=== PATIENT | female | born 1995 | race Caucasian/White ===

== ENCOUNTER → 2018-12-23 | Outpatient (CLI) | payer OTHER ==
--- NOTE | 2018-12-23 20:34 | XCELERA REPORT ---
[address] [address] Transthoracic Echocardiogram Report Name: CK DUBON Age: 23 yrs Gender: Female : 1995 Patient Status: Outpatient Patient Location: [facility] Study Date: 12/23/2018 02:09 PM Height: 67 in Weight: 140 lb BSA: 1.7 m2 Procedure: A two-dimensional transthoracic echocardiogram with color flow and Doppler was performed. Study Quality: Good. Reason For Study: CHEST PAIN History: CHEST PAIN. Ordering Physician: TRACI HALE Performed By: Vijay Cota Interpretation Summary The left ventricle is normal in size. There is normal left ventricular wall thickness. LV EF is > than 60% The left ventricular ejection fraction is within normal limits. Doppler measurements suggest normal left ventricular diastolic function The left ventricular wall motion is normal. There is no thrombus. There is no ventricular septal defect visualized. The right ventricle is normal in size and function. The right atrium is normal. The left atrial size is normal. The interatrial septum is intact with no evidence for an atrial septal defect. There is no Doppler evidence for an interatrial shunt There is no evidence of mitral valve prolapse. There is no vegetation seen on the mitral valve. There is no mitral valve stenosis. There is a trace amount of mitral regurgitation There is no aortic valvular vegetation. There is no aortic valve stenosis There is no LVOT obstruction. No aortic regurgitation is present. There is no tricuspid stenosis. There is a trace to mild amount of tricuspid regurgitation No significant pulmonary hypertension.RVSP is 26 to 31 mm of Hg , with RA mean of 5 to 10. There is no pulmonic valvular stenosis. There is a trace amount of pulmonic regurgitation The aortic root is normal size. The inferior vena cava appeared normal and decreased > 50% with respiration (RAP 5-10 mmHg) MMode/2D Measurements & Calculations RVDd: 2.6 cm LVIDd: 5.2 cm FS: 32.4 % Ao root diam: 2.5 cm IVSd: 0.70 cm LVIDs: 3.5 cm EDV(Teich): Ao root area: LVPWd: 0.67 cm 130.9 ml 5.0 cm2 ESV(Teich): 52.1 mlLA dimension: 3.0 cm EF(Teich): 60.2 % LVLd ap4: 7.3 cm SV(MOD-sp4): EDV(MOD-sp4): 51.0 ml 85.0 ml LVLs ap4: 5.9 cm ESV(MOD-sp4): 34.0 ml EF(MOD-sp4): 60.0 % Doppler Measurements & Calculations MV E max mauricio: MV P1/2t max mauricio: Ao V2 max: LV V1 max P.2 cm/sec 95.3 cm/sec 131.0 cm/sec 3.3 mmHg MV A max mauricio: MV P1/2t: 100.2 msec Ao max PG: LV V1 max: 43.2 cm/sec MVA(P1/2t): 2.2 cm2 6.9 mmHg 91.4 cm/sec MV E/A: 2.1 MV dec slope: 278.4 cm/sec2 MV dec time: 0.22 sec PA V2 max: PI end-d mauricio: TR max mauricio: MV P1/2t-pr_phl: 90.8 cm/sec 76.0 cm/sec 231.3 cm/sec 100.2 msec PA max PG: TR max P.3 mmHg 21.4 mmHg Left Ventricle The left ventricle is normal in size. There is normal left ventricular wall thickness. LV EF is > than 60%. The left ventricular ejection fraction is within normal limits. Doppler measurements suggest normal left ventricular diastolic function. The left ventricular wall motion is normal. There is no thrombus. There is no ventricular septal defect visualized. Right Ventricle The right ventricle is normal in size and function. Atria The right atrium is normal. The left atrial size is normal. The interatrial septum is intact with no evidence for an atrial septal defect. There is no Doppler evidence for an interatrial shunt. Mitral Valve There is no evidence of mitral valve prolapse. There is no vegetation seen on the mitral valve. There is no mitral valve stenosis. There is a trace amount of mitral regurgitation. Aortic Valve There is no aortic valvular vegetation. There is no aortic valve stenosis. There is no LVOT obstruction. No aortic regurgitation is present. Tricuspid Valve There is no tricuspid stenosis. There is a trace to mild amount of tricuspid regurgitation. No significant pulmonary hypertension.RVSP is 26 to 31 mm of Hg , with RA mean of 5 to 10. Pulmonic Valve There is no pulmonic valvular stenosis. There is a trace amount of pulmonic regurgitation. Great Vessels The aortic root is normal size. The inferior vena cava appeared normal and decreased > 50% with respiration (RAP 5-10 mmHg). Effusions There is no pericardial effusion. : TRACI HALE > Elizabeth Smith
== END ==
LOC: SP 13:34
PROVIDERS: ATTEND Family Medicine
DX: R07.89 Other chest pain (principal)
CPT/HCPCS: 93306

== ENCOUNTER → 2019-04-08 | Outpatient (CLI) | payer OTHER | LOC: LAB 11:47 | PROVIDERS: ATTEND Family Medicine | DX: Z32.01 Encounter for pregnancy test, result positive (principal) | CPT/HCPCS: 81025 ==

== ENCOUNTER 2019-11-27 10:02 | Inpatient (IN) | payer OTHER ==
[2019-11-27 10:48] LABS: APPEARANCE,URINE CLEAR; BILIRUBIN,URINE NEGATIVE (NEGATIVE); COLOR,URINE YELLOW; GLUCOSE, URINE NEGATIVE (NEGATIVE); KETONES,URINE NEGATIVE (NEGATIVE); LEUKOCYTE ESTERASE,URINE NEGATIVE (NEGATIVE); NITRITE,URINE NEGATIVE (NEGATIVE); PROTEIN,URINE NEGATIVE (NEGATIVE); URINE SPECIFIC GRAVITY 1.008; UROBILINOGEN,URINE NEGATIVE mg/dL (<2.0)
[2019-11-27] MEDS ORDERED: OXYTOCIN 10 UNIT/ML VIAL ONE (11:09)
[2019-11-27] MEDS ORDERED: MISOPROSTOL 0.2 MG TABLET ONE (11:09)
[2019-11-27] MEDS ORDERED: OXYTOCIN/0.9 % SODIUM CHLORIDE 30 UNIT/500 ML RTUINJ ONE (11:10)
[2019-11-27] MEDS ORDERED: LIDOCAINE 1% INJ-PF (10 MG/ML) 30 ML SDV ONE (11:10)
[2019-11-27 11:13] LABS: URINE AMPHETAMINES SCREEN NEGATIVE; URINE BARBITURATES SCREEN NEGATIVE; URINE BENZODIAZEPINES SCREEN NEGATIVE; URINE COCAINE SCREEN NEGATIVE; URINE MARIJUANA (THC) SCREEN NEGATIVE; URINE METHADONE SCREEN NEGATIVE; URINE PHENCYCLIDINE SCREEN NEGATIVE
[2019-11-27 11:37] LABS: ABSOLUTE LYMPHOCYTES (AUTO) 1.5 10^3/uL (0.5-4.7); ABSOLUTE MONOCYTES (AUTO) 0.5 10^3/uL (0.1-1.4); BASOPHILS % (AUTO) 0.3 % (0-2); EOSINOPHILS % (AUTO) 0.6 % (0-6); HEMOGLOBIN 12.4 g/dL (12.0-15.5); LYMPHOCYTES % (AUTO) 20.9 % (13-45); MEAN CORPUSCULAR HEMOGLOBIN 30.7 pg (27.0-33.4); MEAN CORPUSCULAR HGB CONC 35.3 g/dL (32.0-36.0); MEAN CORPUSCULAR VOLUME 87 fl (80-97); MONOCYTES % (AUTO) 6.9 % (3-13); PLATELET COUNT 220 10^3/uL (150-450); RED BLOOD COUNT 4.03 10^6/uL (3.72-5.28); RED CELL DISTRIBUTION WIDTH 12.7 % (11.5-14.0); SEGMENTED NEUTROPHILS % (AUTO) 71.3 % (42-78); TOTAL CELLS COUNTED % (AUTO) 100 %; WHITE BLOOD COUNT 7.1 10^3/uL (4.0-10.5)
[2019-11-27] MEDS: RINGERS SOLUTION,LACTATED 1,000 ML IV PRN (11:47)
--- NOTE | 2019-11-27 13:08 | Warning Signs in Babies ---
VOD Warning Signs Datetime Report Generated by [facility]: 11/27/2019 13:08 VOD#608 -Warning Signs in Babies: Viewed with Parent(s)/Family (11/27/2019 10:22:Edna Kenny RN)
--- NOTE | 2019-11-27 19:21 | Admission Physical ---
Datetime Report Generated by CPN: 11/27/2019 19:21 CURRENT ADMISSION Chief Complaint: Suspected Ruptured Membranes Indication for Induction: PROM Admit Impression : Term, Intrauterine ; Ruptured Membranes Admit Plan: Admit to Unit; Initiate Labor Induction Protocol ALLERGIES Medication Allergies: No Medication Allergies: No Known Allergies (11/27/2019) Latex: No Latex Allergies OBSTETRICAL HISTORY EDC: 12/13/2019 00:00 : 1 Para: 0 Term: 0 : 0 SAB: 0 IAB: 0 Ectopic: 0 Livin Cesareans: 0 VBACs: 0 Multiple Births: 0 Gestational Diabetes: No Rh Sensitization: No Incompetent Cervix: No MAYTE: No Infertility: No ART Treatment: No Uterine Anomaly: No IUGR: No Hx Previous C/S: No Macrosomia: No Hx Loss/Stillborn: No PIH: No Hx : No Placenta Previa/Abruption: No Depression/PP Depression: No PTL/PROM: No Post Hemorrhage: No Current Procedures: Ultrasound Obstetrical History Comments: G1- current SEE RECORDS Alcohol: No Marijuana : No Cocaine: No Other Illicit Drugs: No Cigarettes: Never Smoker. [id number] MEDICAL HISTORY Diabetes: No Blood Transfusion: No Pulmonary Disease (Asthma, TB): No Breast Disease: No Hypertension: No Neurophysiologist Surgery: No Heart Disease: No Hosp/Surgery: Yes Autoimmune Disorder: No Anesthetic Complications: No Kidney Disease: No Abnormal Pap Smear: No Neuro/Epilepsy: No Psychiatric Disorders: No Other Medical Diseases: No Hepatitis/Liver Disease: No Significant Family History: No Varicosities/Phlebitis: No Trauma/Violence : No Thyroid Dysfunction: No Medical History Comments: tonsilectomy- age 3, wisdom teeth removal 2014 INFECTIOUS HISTORY Gonorrhea: No Genital Herpes: Yes Chlamydia: No Tuberculosis: No Syphilis: No Hepatitis: No HIV/AIDS Exposure: No Rash or Viral Illness: No HPV: No Infectious History Comments: pt and partner with HSV; no outbreak since initial dx 3 years ago; currently on Valtrex 1000mg daily for prophylaxis, started 11/26/19; no evidence of current lesions on exam PHYSICAL EXAM General: Normal HEENT: Normal Neurologic: Normal Thyroid: Normal Heart: Normal Lungs: Normal Breast: Deferred Back: Normal Abdomen: Normal Genitourinary Exam: Normal Extremities: Normal DTRs: Normal Pelvic Type: Adequate Vital Signs: Reviewed VAGINAL EXAM Dilatation: 1 Effacement: 70 Station: -2 MEMBRANES Pooling: Positive Membranes: Ruptured FETUS A EGA: 37.5 Monitoring: External US FHR- Baseline: 120 Decelerations: None FHR Category: Category I Presentation: Vertex Admit Comment: Est weight 7-8 lbs PLANS FOR LABOR AND DELIVERY Labor and Delivery: None Pain Management: None Other Pain Management Plans: IV pain meds preferred over epidural if indicated Feeding Preference: Breast Benefit of Breast Feed Discussed: Yes Circumcision: Yes INFORMED CONSENT Signature: with User ID: [email or web address]
[2019-11-27] MEDS ORDERED: AMPICILLIN SOD INJ 2 GM VIAL ONE (20:39)
[2019-11-28] MEDS: RINGERS SOLUTION,LACTATED 1,000 ML IV PRN (00:29)
[2019-11-28] MEDS ORDERED: AMPICILLIN SOD INJ 2 GM VIAL ONE (02:55)
[2019-11-28] MEDS: AMPICILLIN SOD INJ 2 GM VIAL IV SCH ×3 (03:04→10:20)
[2019-11-28] MEDS ORDERED: PROMETHAZINE HCL INJ 25 MG/1 ML VIAL ONE (04:53)
[2019-11-28] MEDS ORDERED: PROMETHAZINE HCL INJ 25 MG/1 ML VIAL IV ONE (04:54)
[2019-11-28] MEDS ORDERED: NALBUPHINE HCL INJ 10 MG/1 ML AMPULE ONE (04:54)
[2019-11-28] MEDS ORDERED: NALBUPHINE HCL INJ 10 MG/1 ML AMPULE INJ ONE (04:54)
[2019-11-28] MEDS ORDERED: BENZOCAINE/MENTHOL AEROSOL SPRAY 56 ML TOP PRN (07:33)
[2019-11-28] MEDS ORDERED: ACETAMINOPHEN 650 MG SUPP.RECT PR PRN (07:33)
[2019-11-28] MEDS ORDERED: ZOLPIDEM TARTRATE 5 MG TABLET PO PRN (07:33)
[2019-11-28] MEDS ORDERED: OXYTOCIN/0.9 % SODIUM CHLORIDE 30 UNIT/500 ML RTUINJ IV PRN (07:33)
[2019-11-28] MEDS ORDERED: MAGNESIUM HYDROXIDE SUSP 30 ML UDCUP PO PRN (07:33)
[2019-11-28] MEDS ORDERED: PROMETHAZINE HCL 25 MG TABLET PO PRN (07:33)
[2019-11-28] MEDS ORDERED: PROMETHAZINE HCL INJ 25 MG/1 ML VIAL IV PRN (07:33)
[2019-11-28] MEDS ORDERED: MEASLES,MUMPS&RUBELLA VACC/PF 0.5 ML VIAL SUBCUT PRN (07:33)
[2019-11-28] MEDS ORDERED: NA PHOS,M-B/NA PHOS,DI-BA (ADULT) 133 ML ENEMA PR PRN (07:33)
[2019-11-28] MEDS ORDERED: PROMETHAZINE HCL 25 MG SUPP.RECT PR PRN (07:33)
[2019-11-28] MEDS ORDERED: DIPH/PERTUSS(ACELL)/TETANUS VAC/PF 0.5 ML SYR (>=10YO) IM PRN (07:33)
[2019-11-28] MEDS ORDERED: PSEUDOEPHEDRINE HCL 30 MG TABLET PO PRN (07:33)
[2019-11-28] MEDS ORDERED: ACETAMINOPHEN WITH CODEINE #3 TABLET PO PRN ×2 (07:33)
[2019-11-28] MEDS ORDERED: DIPHENHYDRAMINE HCL 25 MG CAPSULE PO PRN (07:33)
[2019-11-28] MEDS ORDERED: GLYCERIN/WITCH HAZEL LEAF 1 EACH MED..WIPE TP PRN (07:33)
[2019-11-28] MEDS ORDERED: DIBUCAINE 1% OINTMENT 28 GM TP PRN (07:33)
[2019-11-28] MEDS: SENNOSIDES/DOCUSATE 8.6-50 MG 1 EACH TABLET PO SCH (09:52)
[2019-11-28] MEDS: DOCUSATE SODIUM 100 MG CAPSULE PO SCH ×2 (09:52→17:22)
[2019-11-28] MEDS: PRENATAL VITAMIN W DHA CAPSULE PO SCH (09:52)
[2019-11-28] MEDS: FERROUS SULFATE 325 MG TABLET PO SCH ×2 (09:53→17:22)
[2019-11-28] MEDS: FAMOTIDINE 20 MG TABLET PO SCH ×2 (09:53→22:06)
--- NOTE | 2019-11-28 10:23 | Delivery Summary ---
Del Sum A-C Datetime Report Generated by CPN: 11/28/2019 10:23 DELIVERY PERSONNEL DELIVERY PERSONNEL: [id number] Delivery Doctor:: Lesvia Malcolm MD Labor and Delivery Nurse:: Eden Larkin RNreinforcing steel placer Nurse:: Estee Simon RN Nursery Nurse:: Mary Maloney RN Hat Model/CAR REFINISHER: Celso Garduno CST Hat Model/CAR REFINISHER: Vidhya Luna, ST Additional Personnel: : Corazon Ackerman, RN MATERNAL INFORMATION Delivery Anesthesia: Local Medications After Delivery: Pitocin 30 Units in 500ml NS/D5W Estimated Blood Loss (ml): 250 Maternal Complications: Premature Rupture of Membranes LABOR SUMMARY EDC: 12/13/2019 00:00 No. Babies in Womb: 1 Attempted: No Labor Anesthesia: None LABOR INFORMATION Reason for Induction: Not Applicable Onset of Labor: 11/28/2019 05:00 Complete Dilatation: 11/28/2019 06:21 Oxytocin: Augmentation Group B Beta Strep: negative Antibiotics # of Doses: 2 Antibiotics Time of Last Dose: 0300 Name of Antibiotic Given: Ampicillin 2G Steroids Given: None Reason Steroids Not Administered: Not Applicable MEMBRANES Membranes Rupture Method: Spontaneous Rupture of Membranes: 11/27/2019 23:00 Length of Rupture (hr): 7.73 Amniotic Fluid Color: Clear Amniotic Fluid Amount: Small Amniotic Fluid Odor: Normal STAGES OF LABOR Stage 1 hr: 1 Stage 1 min: 21 Stage 2 hr: 0 Stage 2 min: 23 Stage 3 hr: 0 Stage 3 min: 6 Total Time in Labor hr: 1 Total Time in Labor min: 50 VAGINAL DELIVERY Episiotomy: None Laceration #1: Perineal Laceration Extension #1: Third Degree, IIIc (Both ext and int anal sphincter torn) Laceration #2: None Laceration Extension #2: N/A Laceration #3: None Laceration Extension #3: N/A Laceration Repair: Yes Laceration Repair Note: The vaginal laceration was repaired with 3-0 chromic suture to the introitus. The internal anal sphincter was closed with a 3-0 chromic suture. The external anal sphincter was grasped with allis clamps bilaterally. A 2-0 vicryl suture was then placed in a figure 8 fashion at 9:00, 6:00, 12:00 and 3:00 through the capsule of the external anal sphincter bringing the muscle back together over the midline. A gentle rectal exam showed no sutures in the rectum and good rectal tone. The perineum was brought together with several 3-0 chromic sutures and the skin was closed with a running 3-0 chromic suture. All sponges were removed from the vagina. Sponge Count Correct: N/A; Vaginal Sweep Performed Sharps Count Correct: Yes CSECTION DELIVERY Primary Indication: N/A Secondary Indication: N/A CSection Incidence: N/A Labor: N/A Elective: N/A CSection Incision: N/A BABY A INFORMATION Delivery Date/Time: 11/28/2019 06:44 Method of Delivery: Vaginal Nurse Controlled Delivery: No Born in Route : No : N/A Forceps: N/A Vacuum Extraction: N/A Shoulder Dystocia : No PRESENTATION/POSITION BABY A Presentation: Cephalic Cephalic Presentation: Vertex Vertex Position: Left Occipital Anterior Breech Presentation: N/A PLACENTA INFORMATION BABY A Placenta Delivery Time : 11/28/2019 06:50 Placenta Method of Delivery: Spontaneous Placenta Status: Delivered INFORMATION BABY A Gestational Age at Delivery: 37.6 Gestational Status: Early Term- 37- 38.6 Weeks Infant Outcome : Liveborn Condition : Stable Infant Sex: Female IDENTIFICATION BABY A ID Band Number: [id number] Mother's Name Verified: Yes RN Verifying Infant: ALiset Larkin RN Additional Verifying Personnel: D. Madrone EVENT SPECIALIST PRODUCT DEMONSTRATOR WEIGHT/LENGTH BABY A Infant Birthweight (gm): 3612 Weight (lb): 7 Infant Weight (oz): 15 Length (in): 19.75 Infant Length (cm): 50.17 CORD INFORMATION BABY A No. Cord Vessels: 3 Nuchal Cord : Around Neck x1, Loose Cord Blood Taken: Yes-For Eval (Mom's Blood Type - or O+) Infant Suction: Mouth ASSESSMENT BABY A Complications: None Physical Findings at Delivery: Within Normal Limits Skin to Skin: Yes Transferred To: Remains with Mother BABY B INFORMATION : N/A SIGNATURES Signature: with User ID: [email or web address]
[2019-11-28] MEDS: IBUPROFEN 800 MG TABLET PO SCH ×2 (13:37→22:06)
[2019-11-28] MEDS: AMPICILLIN SODIUM 2 GM in NORMAL SALINE 100 ML IV SCH (14:34)
[2019-11-29] MEDS: AMPICILLIN SODIUM 2 GM in NORMAL SALINE 100 ML IV SCH ×4 (01:10→14:01)
[2019-11-29] MEDS: IBUPROFEN 800 MG TABLET PO SCH ×3 (05:39→21:55)
[2019-11-29 07:24] LABS: HEMATOCRIT 29.7 % (36.0-47.0); HEMOGLOBIN 10.4 g/dL (12.0-15.5); MEAN CORPUSCULAR HEMOGLOBIN 30.5 pg (27.0-33.4); MEAN CORPUSCULAR VOLUME 87 fl (80-97); PLATELET COUNT 242 10^3/uL (150-450); RED BLOOD COUNT 3.41 10^6/uL (3.72-5.28); RED CELL DISTRIBUTION WIDTH 12.8 % (11.5-14.0); WHITE BLOOD COUNT 11.3 10^3/uL (4.0-10.5)
--- NOTE | 2019-11-29 09:15 | PDOC PROGRESS REPORT ---
Subjective-OB Progress Note for:: 11/29/19 Subjective: Pt doing well, no concerns. She reports light bleeding, reg diet and voiding w/o difficulty. Physical Exam (OB) Vital Signs: Temp Pulse Resp BP Pulse Ox 97.7 F 68 18 101/56 L 100 11/29/19 07:20 11/29/19 07:20 11/29/19 07:20 11/29/19 07:20 11/29/19 07:20 Intake & Output 11/28/19 11/29/19 11/30/19 06:59 06:59 06:59 Intake Total 1000 Output Total 500 Balance 1000 -500 Weight 79.2 kg - Lochia Lochia Amount: Small 10-25 ml Lochia Color: Rubra/Red - Abdomen Description: Soft Hernia Present: No Fundal Description: Firm, Midline Fundal Height: u/u - u/2 Objective-Diagnostic Laboratory: 11/29/19 06:30 11/29/19 06:30 WBC 11.3 H RBC 3.41 L Hgb 10.4 L Hct 29.7 L MCV 87 MCH 30.5 MCHC 35.0 RDW 12.8 Plt Count 242 Assessment and Plan(PN) - Assessment and Plan (1) (normal spontaneous vaginal delivery) Is this a current diagnosis for this admission?: Yes (2) First degree perineal laceration Is this a current diagnosis for this admission?: Yes (3) Normal course Is this a current diagnosis for this admission?: Yes - Time Spent with Patient Time with patient: Less than 15 minutes Smoking Education Provided: Over 3 minutes Medications reviewed and adjusted accordingly: Yes - Disposition Anticipated Discharge Disposition: Home, Self Care Anticipated Discharge: within 24 hours
[2019-11-29] MEDS: FAMOTIDINE 20 MG TABLET PO SCH ×2 (10:42→21:56)
[2019-11-29] MEDS: PRENATAL VITAMIN W DHA CAPSULE PO SCH (10:42)
[2019-11-29] MEDS: FERROUS SULFATE 325 MG TABLET PO SCH ×2 (10:43→18:07)
[2019-11-29] MEDS: SENNOSIDES/DOCUSATE 8.6-50 MG 1 EACH TABLET PO SCH (10:43)
[2019-11-29] MEDS: DOCUSATE SODIUM 100 MG CAPSULE PO SCH ×2 (10:43→18:07)
[2019-11-30] MEDS: IBUPROFEN 800 MG TABLET PO SCH ×2 (01:01→09:20)
[2019-11-30] MEDS: AMPICILLIN SODIUM 2 GM in NORMAL SALINE 100 ML IV SCH ×3 (02:15→11:30)
[2019-11-30] MEDS: SENNOSIDES/DOCUSATE 8.6-50 MG 1 EACH TABLET PO SCH (09:20)
[2019-11-30] MEDS: FAMOTIDINE 20 MG TABLET PO SCH (09:20)
[2019-11-30] MEDS: PRENATAL VITAMIN W DHA CAPSULE PO SCH (09:20)
[2019-11-30] MEDS: FERROUS SULFATE 325 MG TABLET PO SCH (09:20)
[2019-11-30] MEDS: DOCUSATE SODIUM 100 MG CAPSULE PO SCH (09:20)
--- NOTE | 2019-11-30 12:43 | PDOC DISCHARGE SUMMARY ---
Impression - Admit/DC Date/PCP Admission Date/Primary Care Provider: 11/27/19 10:51 TRACI HALE MD Discharge Date: 11/30/19 - Discharge Diagnosis (1) Anemia associated with acute blood loss Is this a current diagnosis for this admission?: Yes (2) (normal spontaneous vaginal delivery) Is this a current diagnosis for this admission?: Yes (3) Normal course Is this a current diagnosis for this admission?: Yes (4) Third degree laceration of perineum, type 3c Is this a current diagnosis for this admission?: Yes - Assessment Summary: 23yo G1 now P1 s/p ppd 2 stable and ready for discharge no concerns today understands warning s/s, understands she needs to make appt for f/u on laceration for [address] Malcolm - Additional Information Resuscitation Status: Full Code Discharge Diet: As Tolerated, Regular Discharge Activity: Activity As Tolerated, Balance Activity w/Rest, No Lifting Over 10 Pounds, Pelvic Rest, Slowly Increase Activity, No tub bath, Walk Frequently Referrals: TRACI HALE MD [Primary Care Provider] - Prescriptions: Ibuprofen [Motrin 800 mg Tablet] 800 mg PO Q8HP PRN #20 tablet PRN Reason: Abdominal Cramping Docusate Sodium [Colace 100 mg Capsule] 100 mg PO BID #60 capsule Ferrous Sulfate [Feosol 325 mg Tablet] 325 mg PO BID #60 tablet Home Medications: Vitamin [-U Multiple Vitamin Capsule] 1 cap PO DAILY 11/27/19 Valacyclovir HCl [Valtrex] 1,000 mg PO DAILY 11/27/19 Docusate Sodium [Colace 100 mg Capsule] 100 mg PO BID #60 capsule 11/30/19 Ferrous Sulfate [Feosol 325 mg Tablet] 325 mg PO BID #60 tablet 11/30/19 Ibuprofen [Motrin 800 mg Tablet] 800 mg PO Q8HP PRN #20 tablet 11/30/19 Results Laboratory Results: WBC 11.3 10^3/uL (4.0-10.5) H 11/29/19 06:30 RBC 3.41 10^6/uL (3.72-5.28) L 11/29/19 06:30 Hgb 10.4 g/dL (12.0-15.5) L 11/29/19 06:30 Hct 29.7 % (36.0-47.0) L 11/29/19 06:30 MCV 87 fl (80-97) 11/29/19 06:30 MCH 30.5 pg (27.0-33.4) 11/29/19 06:30 MCHC 35.0 g/dL (32.0-36.0) 11/29/19 06:30 RDW 12.8 % (11.5-14.0) 11/29/19 06:30 Plt Count 242 10^3/uL (150-450) 11/29/19 06:30 Lymph % (Auto) 20.9 % (13-45) 11/27/19 11:14 Dunn % (Auto) 6.9 % (3-13) 11/27/19 11:14 Eos % (Auto) 0.6 % (0-6) 11/27/19 11:14 Baso % (Auto) 0.3 % (0-2) 11/27/19 11:14 Absolute Neuts (auto) 5.0 10^3/uL (1.7-8.2) 11/27/19 11:14 Absolute Lymphs (auto) 1.5 10^3/uL (0.5-4.7) 11/27/19 11:14 Absolute Monos (auto) 0.5 10^3/uL (0.1-1.4) 11/27/19 11:14 Absolute Eos (auto) 0.0 10^3/uL (0.0-0.6) 11/27/19 11:14 Absolute Basos (auto) 0.0 10^3/uL (0.0-0.2) 11/27/19 11:14 Seg Neutrophils % 71.3 % (42-78) 11/27/19 11:14 Urine Color YELLOW 11/27/19 10:15 Urine Appearance CLEAR 11/27/19 10:15 Urine pH 7.0 (5.0-9.0) 11/27/19 10:15 Ur Specific [place] 1.008 11/27/19 10:15 Urine Protein NEGATIVE mg/dL (NEGATIVE) 11/27/19 10:15 Urine Glucose (UA) NEGATIVE mg/dL (NEGATIVE) 11/27/19 10:15 Urine Ketones NEGATIVE mg/dL (NEGATIVE) 11/27/19 10:15 Urine Blood NEGATIVE (NEGATIVE) 11/27/19 10:15 Urine Nitrite NEGATIVE (NEGATIVE) 11/27/19 10:15 Urine Bilirubin NEGATIVE (NEGATIVE) 11/27/19 10:15 Urine Urobilinogen NEGATIVE mg/dL (<2.0) 11/27/19 10:15 Ur Leukocyte Esterase NEGATIVE (NEGATIVE) 11/27/19 10:15 Urine Ascorbic Acid NEGATIVE (NEGATIVE) 11/27/19 10:15 Membranes Rupture POSITIVE (NEGATIVE) H 11/27/19 10:25 Urine Opiates Screen NEGATIVE 11/27/19 10:15 Urine Methadone Screen NEGATIVE 11/27/19 10:15 Ur Barbiturates Screen NEGATIVE 11/27/19 10:15 Ur Phencyclidine Scrn NEGATIVE 11/27/19 10:15 Ur Amphetamines Screen NEGATIVE 11/27/19 10:15 U Benzodiazepines Scrn NEGATIVE 11/27/19 10:15 Urine Cocaine Screen NEGATIVE 11/27/19 10:15 U Marijuana (THC) Screen NEGATIVE 11/27/19 10:15 RPR NONREACTIVE (NONREACTIVE) 11/27/19 11:14 HSV II Specific Ab < 0.91 index (0.00-0.90) 11/27/19 11:14 Blood Type A POSITIVE 11/27/19 11:14 Antibody Screen NEGATIVE 11/27/19 11:14
[2019-11-30 12:52] VITALS: BP 120/74
== END 2019-11-30 13:15 | disposition home or self-care (01) | DRG 768 ==
LOC: LC 10:02 → LR 10:51 → OBSVTOIN 10:51 → INTOOBSV 10:51 → 2S 11-28 09:35
PROVIDERS: ADMIT Obstetrics & Gynecology; ATTEND Obstetrics & Gynecology
PROC: 10E0XZZ Delivery of Products of Conception, External Approach (ICD-10-PCS; principal; 2019-11-28)
PROC: 0DQR0ZZ Repair Anal Sphincter, Open Approach (ICD-10-PCS; 2019-11-28)
DX: O42.92 Full-term premature rupture of membranes, unspecified as to length of time between rupture and onset of labor (principal); Z37.0 Single live birth; O98.32 Other infections with a predominantly sexual mode of transmission complicating childbirth; O70.23 Third degree perineal laceration during delivery, IIIc; D62 Acute posthemorrhagic anemia; A60.00 Herpesviral infection of urogenital system, unspecified; Z3A.37 37 weeks gestation of pregnancy; O69.81X0 Labor and delivery complicated by cord around neck, without compression, not applicable or unspecified; O99.02 Anemia complicating childbirth; Z79.899 Other long term (current) drug therapy
CPT/HCPCS: 36415; 80307; 81005; 84112; 85025; 85027; 86592; 86695; 86696; 86850; 86900; 86901; J0290; J2300; J2550; J2590; J3490